=== PATIENT | female | born 1955 | race Caucasian/White ===

== ENCOUNTER → 2021-10-03 | Outpatient (CLI) | payer SELFPAY, OTHER ==
--- NOTE | 2021-10-03 16:15 | PET_ITS ---
EXAMINATION: FDG PET-CT INDICATIONS: A 65-year-old female with reported history of thyroid carcinoma presenting for restaging examination. COMPARISON EXAMINATION: None available INDEX LESION SIZE SUV INTERPRETATION Left anterolateral lung field 38.3-mm 4.0 Fulfills quantitative criteria for viable neoplasm, histopathologic analysis recommended Left upper medial lung field 30.9-mm 3.4 Fulfills quantitative criteria for viable neoplasm with single point technique, May represent inflammatory process, histopathologic analysis is recommended Right hemithorax pulmonary parenchyma 2.1 (max) Quantitative criteria for viable neoplasm are not fulfilled TECHNIQUE: Following the intravenous administration of 11.95 mCi of F-18 deoxyglucose via the left antecubital fossa, multiplanar image acquisitions of the neck, chest, abdomen and pelvis to level of mid thigh, obtained at one hour post radiopharmaceutical administration contemporaneously interpreted with the current CT of the neck, chest, abdomen and pelvis, to level of mid thigh, dated 10/03/21 via coregistration reveals: BLOOD GLUCOSE LEVEL:?? 106 mg/dl?HEIGHT:?62 inches?WEIGHT: 127 lbs. FINDINGS: Head/Neck: There is focal increased radiopharmaceutical concentration defined in the distribution of the cricopharyngeus musculature to the right of the midline without evidence of soft tissue thickening, most consistent with asymmetric muscle tension artifact. There is no evidence of abnormal increased glucose metabolism in the pharyngeal mucosal space, parapharyngeal space, bilateral-lateral and anterior neck, hypopharynx and distribution of the laryngeal structures. The visualized portion of the cerebral cortical-subcortical structures demonstrate symmetric and preserved glucose metabolism. CHEST: An increase in radiopharmaceutical concentration is identified in the left upper anterolateral hemithorax. The calculated maximal standard uptake value is 4.0. The maximal axial diameter of the metabolic, morphologic abnormality is 38.3-mm (AP). The focus of increased tracer concentration is identified in the left upper medial hemithorax pulmonary parenchyma with a calculated maximal standard uptake value of 3.4. The maximal axial diameter of the largest abnormality is 30.9-mm. Prominent radiopharmaceutical concentration is noted in the left thoracic perihilum associated with port introduction of the radiopharmaceutical. An increase in glucose metabolism is identified in the right anterolateral lung field with a calculated maximal standard uptake value of 2.1. Pertinent chest CT findings are as follows. Esophageal radiopharmaceutical concentration is noted in the proximal-distal esophagus. There is evidence of median sternotomy. Apparent valve replacement surgical intervention is noted at the level of the mitral valve. There is atherosclerotic calcification defined in the thoracic aorta without evidence of dilatation-aneurysm formation. An azygos fissure is noted. Scattered additional parenchymal densities noted in the bilateral hemithorax reveal no evidence of increased glucose metabolism. Abdomen/Pelvis: Normal physiologic distribution of the radiopharmaceutical is apparent in the hepatic and splenic parenchyma, both renal units, bladder and visualized intestinal tract. Pertinent abdomen and pelvis CT findings are as follows. Hiatal hernia is defined. Retroperitoneal soft tissue is non-glucose avid. There is atherosclerotic calcification defined in the abdominal aorta without evidence of dilatation-aneurysm formation. Pelvic arterial calcification is encountered. Colonic diverticulosis is noted. Subtle calcification is observed in the right adnexal region. Skeletal: Degenerative changes are noted in the cervical, thoracic and lumbar spine without evidence of increased radiopharmaceutical concentration. There are no well-defined sclerotic-lytic changes manifest on review of the appendicular-axial skeletal structures. PET/PET/CT Tumor Base -Thigh Init IMPRESSION: 1. ABNORMAL EXAMINATION INDICATIVE OF MALIGNANT VIABLE NEOPLASM. 2. The increase in glucose metabolism identified in the left upper anterolateral, as well as left upper medial lung field, fulfill quantitative criteria for viable neoplasm. Histopathologic analysis is recommended. 3. The right lung hypermetabolic focus does not fulfill quantitative criteria for viable neoplasm. Electronic Signature Jj Ravi D.O. Accurate Quantification of SUVs for this report are calculated using the exclusive [employer]. ([place]. Patent No. [id number] [id number] 983). Standardization and correction of the FDG SUV metric via [employer] technology allow for vendor non-specific objective quantitative examination comparison and optimization of the sensitivity and specificity of the FDG PET-CT examination. Electronically Signed: Jj Ravi, at 14:31 EDT ,
== END | disposition home or self-care (01) ==
DX: C73 Malignant neoplasm of thyroid gland (principal)
CPT/HCPCS: 78815; A9552

== ENCOUNTER → 2021-11-27 | Outpatient (CLI) | payer SELFPAY, OTHER ==
--- NOTE | 2021-11-27 16:05 | CT_ITS ---
EXAM: CT CHEST, ABDOMEN AND PELVIS WITH INTRAVENOUS CONTRAST CLINICAL INDICATION: NEUROENDOCRINE CANCER/ THYROID CANCER TECHNIQUE: Helically acquired images were obtained of the chest, abdomen and pelvis with intravenous contrast. CTDIvol = ( 10.97 ) mGy, DLP = ( 914.02 ) mGycm This CT exam was performed using one or more of the following dose reduction techniques: automated exposure control, adjustment of the mA and/or kV according to patient size, and/or use of iterative reconstruction technique. This report was created using [employer] report i[employer] technology. CONTRAST: IV 100mL Isovue-370 COMPARISON: None. FINDINGS: CHEST: LUNGS AND PLEURAL SPACES: Question radiation changes of lung adjacent to the medial aspect of the right and left superior mediastinum. Correlate with medical or of gynecologic history. Airspace disease with linear appearance at the anterolateral aspect of left apex. This could also represent radiation change but would correlate clinically to exclude pneumonia or pneumonitis. Azygos lobe and fissure identified. Mild infectious sequela at the inferior lingula. Scarring at the right middle lobe. No pleural effusion or pneumothorax. No mass. HEART: Cardiomegaly including biatrial enlargement. No significant pericardial effusion. No significant coronary artery calcifications. MEDIASTINUM: No mediastinal or hilar adenopathy. Small hiatal hernia suggested. Esophagus is unremarkable. THYROID: Absent thyroid. Correlate with surgical history. ABDOMEN: LIVER: Unremarkable. Homogeneous. No focal mass. GALLBLADDER AND BILE DUCTS: Contracted gallbladder. No calcified gallstones. No gallbladder distention or wall edema. No intra- or extrahepatic biliary ductal dilation. PANCREAS: Unremarkable. No focal cystic or solid mass. SPLEEN: Unremarkable. Normal size without focal cystic or solid mass. ADRENALS: Adrenal glands are normal. KIDNEYS AND URETERS: Unremarkable. Normal renal size and position. No hydronephrosis. STOMACH AND BOWEL: No inflammatory or obstructive changes of bowel. No focal inflammatory change. PELVIS: APPENDIX: No evidence of acute appendicitis. BLADDER: Unremarkable. REPRODUCTIVE: Unremarkable as visualized. No mass. CHEST, ABDOMEN and PELVIS: INTRAPERITONEAL SPACE: No free air. No ascites or other fluid collection. BONES/JOINTS: No suspicious lytic or sclerotic lesions of bone. Overlying soft tissues are unremarkable. SOFT TISSUES: Unremarkable. No discrete abdominal or pelvic wall hernia. VASCULATURE: No PE. No aortic aneurysm or dissection. Multivessel calcific coronary arteriosclerosis. Prominent parametrial an gonadal vessels can be seen with pelvic congestion syndrome in the appropriate clinical setting. No obvious central pulmonary embolism although this study was not performed with the pulmonary embolism protocol. LYMPH NODES: No adenopathy in the abdomen/pelvis. CT/CT Chest, Abd, Pel w/Contrast IMPRESSION: 1. No evidence or metastatic disease to the chest or abdomen/pelvis. 2. Airspace disease with linear appearance at the anterolateral aspect of left apex. This could also represent radiation change but would correlate clinically to exclude pneumonia or pneumonitis. 3. Mild infectious sequela at the inferior lingula. 4. Cardiomegaly with biatrial enlargement. 5. No acute or inflammatory abdominopelvic disease. 6. Ancillary findings as above. Electronically Signed: Issac Rubio MD at 2:57 EDT ,
--- NOTE | 2021-11-27 16:05 | CT_ITS ---
STUDY: CT SOFT TISSUE NECK WITH CONTRAST REASON FOR EXAM: Female, 66 years old. Thyroid cancer, neuroendocrine cancer. RADIATION DOSAGE (If Supplied By Facility): CTDIvol = ( 10.97 ) mGy, DLP = ( 914.02 ) mGycm TECHNIQUE: The patient was scanned in a multi-detector CT scanner. High resolution transaxial imaging was performed following intravenous administration of 100 mL of Isovue 370. Sagittal and coronal images were reconstructed. Individualized dose optimization techniques were used for this CT. COMPARISON: None. FINDINGS: There is evidence of prior midline sternotomy. Normal bilateral parotid glands. Normal bilateral psychiatric assistant spaces. Normal bilateral parapharyngeal spaces. Normal bilateral carotid spaces. Normal bilateral sublingual and submandibular glands and spaces. Normal visualized nasopharynx. Normal retropharyngeal space. Normal perivertebral space. Normal visualized bilateral faucial tonsils. The visualized tongue, tongue base and oropharynx are normal. The visualized cervical lymph nodes (levels I-) are within normal size limits, and maintain normal morphology. There is no demonstrated solid or cystic mass lesion. There is no abnormal contrast enhancement. Normal epiglottis, bilateral vallecula and hypopharynx. The pre-epiglottic and paraglottic adipose spaces are normal. Normal visualized bilateral piriform sinuses, aryepiglottic folds, vocal cords, and arytenoid-cricoid articulations. Normal subglottic trachea. The patient is status post thyroidectomy. Scarring in the anterior medial aspect of the lung apices bilaterally. This evidence of a azygos lobe. Normal visualized paranasal sinuses. There is multilevel degenerative changes of the cervical spine. CT/Soft Tissue Neck WITH Contrast IMPRESSION: Status post thyroidectomy. Scarring in the medial aspects of both upper lobes suggestive of prior radiation changes. Electronically Signed: Rajiv Betancourt MD at 9:08 EDT ,
[2021-11-28 07:30] LABS: CREATININE FINGERSTICK < 0.9 mg/dL (0.55-1.02); EGFR FINGERSTICK > 60 mL/min (>60)
== END | disposition home or self-care (01) ==
DX: C73 Malignant neoplasm of thyroid gland (principal)
CPT/HCPCS: 70491; 71260; 74177; Q9967